=== PATIENT | male | born 1985 | race Caucasian/White ===

== ENCOUNTER 2022-10-12 02:12 | Emergency (ER) | payer BC, SELFPAY ==
[2022-10-12 02:30] VITALS: BP 124/86; PULSE 67; RESP 16; TEMP 36.3; O2SAT 100
--- NOTE | 2022-10-12 04:19 | PC.NURSE ---
Agree with triage note. Pt states when he woke up around 0130 with arm pain he also had belching which is abnormal per his normal. Since waiting in [facility] pt states pain has subsided.
[2022-10-12 04:25] VITALS: BP 138/88; PULSE 61; RESP 13; O2SAT 100
[2022-10-12 06:09] VITALS: BP 132/91; PULSE 70; O2SAT 99
--- NOTE | 2022-10-12 06:40 | PC.NURSE ---
pt asking to leave, been here 6 hrs. pt stated he will see PCP when office opens.
== END 2022-10-12 06:42 | disposition left against medical advice (07) ==
PROVIDERS: PCP Internal Medicine
DX: M79.632 Pain in left forearm (principal)
CPT/HCPCS: 99199